=== PATIENT | male | born 1950 | race African-American/Black ===

== ENCOUNTER → 2017-03-13 | Outpatient (CLI) | payer OTHER, MEDICARE ==
[~2017-03-13] MED LIST: CHOL100013 PO; HYDR-2666 PO; OMEP20CA9 PO
--- NOTE | 2017-03-14 00:22 | PAIN ---
DATE OF SERVICE: 03/13/2017 INITIAL CONSULTATION CHIEF COMPLAINT: Neck and left upper extremity pain. HISTORY OF PRESENT ILLNESS: This is a 66-year-old male who presents with history of pain since about 10/2016, gradually increasing, not the result of any specific injury or accident he is aware of, but the pain into the left arm and shoulder got worse as he had a cold at that time with a cough and he still has a low-grade cough, but the coughing causes the pain to get significantly worse in the base of his neck and radiating to his left shoulder, radiating into the arm, forearm and upper arm on the left side into the hand with some numbness and tingling from the elbow to the hand as well as some numbness and tingling in the upper arm and aching and shooting pain in the upper arm and shoulder. The patient reports sharp, stabbing, shooting with numbness and radiation, intermittent in intensity, worse with coughing, worse with activity. His arm gets much more tender now with fatigability much higher than the right side. The patient reports no loss of motor function, but significant fatigability once again on the left side. The patient reports that it wakes him from sleep at least once or twice a night. It does not affect his bowel or bladder control or his ability to walk, but it is significantly painful. The patient did have physical therapy, which he said helped to increase the mobility in his neck and shoulder, but has not decreased the pain significantly. He is still doing some exercises on his own at home as well and taking some pain medication, he is unsure of the name of it currently, but this seems to help as well. The patient rates his disability rating from 0 to 10, 10 being the worst, as a 3 with family and home responsibilities, recreation, occupation, 5 with social activity, 4 with self-care and life support activities. The patient did have an MRI scan of the cervical spine, showing some degenerative changes at cervical disk levels, worse at C3-C4 with some narrowing at C5-C6, more on the left with mild compromised left neural foramen at C6-C7, showing some loss of disk space height as well. PAST MEDICAL HISTORY: Significant for hearing loss, cigarette smoking 1 pack a day for 40 years, osteoporosis. PAST SURGICAL HISTORY: Previous surgeries include appendectomy, hemorrhoidectomy, right knee arthroscopy and neck lipoma excision in 2016. CURRENT MEDICATIONS: Include hydrocodone on a p.r.n. basis. He is not taking any other medications. ALLERGIES: The patient has no known drug allergies. FAMILY HISTORY: Not significant for any major medical problems or conditions that he is aware of. SOCIAL HISTORY: The patient smokes one packet of cigarettes a day. Does not drink alcohol. He is , lives with his spouse and lives locally. He is currently retired. REVIEW OF SYSTEMS: The patient's review of systems is positive for those items mentioned in the history of present illness. All systems reviewed and otherwise negative. It is complete, full and well documented on the patient's chart. PHYSICAL EXAMINATION: VITAL SIGNS: The patient's blood pressure is 128/84, pulse is 91, respirations 16, temperature 98.6 degrees Fahrenheit, height is 5 feet 6 inches, weight is 165 pounds. GENERAL: The patient is awake, alert, oriented, appropriate, very pleasant demeanor. HEENT: Shows normocephalic and atraumatic. Extraocular movements are intact and symmetrical. Oral cavity shows mucous membranes are moist and pink. Dentition is intact. NECK: Shows anterior throat supple without palpable lymphadenopathy noted. Swallow reflex is symmetrical. CHEST: Shows normal on inspection. Breath sounds are clear to auscultation bilaterally. HEART: Shows S1 and S2 clear. No murmurs auscultated. ABDOMEN: Soft, nontender, nondistended. No palpable organomegaly noted. No rebound or guarding demonstrated. BACK: Shows spine grossly in the midline. Normal-appearing cervical lordotic curvature, thoracic kyphotic curvature, and lumbar lordotic curvature. Cervical paraspinous musculature is symmetrical on inspection with palpation, shows some very mild tenderness with deep palpation in the low left side of the cervical paraspinous muscles diffusely, not on the right. Also, some minor tenderness with palpation in the medial and lateral trapezius on the left, but not the right. Again, symmetrically shows full rotational motion of the cervical spine, both right and left lateral rotation greater than 45 degrees as well as full extension and full forward flexion without exacerbation of pain. EXTREMITIES: The patient's upper extremities show deep tendon reflexes at 2+ in the biceps and triceps tendons. 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 Bicep and tricep flexion shows biceps flexion at about 4/5 on the left, triceps 5/5 on the left and 5/5 each on the right side. Peripheral pulses are 2+ radial distribution. No peripheral edema is noted. No clubbing. No cyanosis. Upper extremities are warm and dry to touch, equal in color and appearance. Shoulder shrug is strong and intact with some minor loss of strength on the left side with resistance, but not with abduction of the shoulders at 90 degrees bilaterally, which is intact with some minor pain reported, but without loss of strength. IMPRESSION: 1. This is a 66-year-old male with history of left upper extremity pain for about 6 months now in a radicular fashion. 2. MRI scan of the cervical spine as noted. 3. Cigarette smoking. 4. History of osteoporosis. PLAN: Options were discussed with the patient including conservative medical management, physical therapies, and interventional techniques. He has had physical therapy with only some minimal improvement. He would like to pursue interventional techniques, but is somewhat apprehensive. We will try Medrol Dosepak first and see if this may decrease the pain significantly as the pain is slightly improved since it was back in October and we would like to see if this will continue. If not, we did discuss cervical epidural steroid injection, we will try the Medrol Dosepak initially. If not significantly improved in about 1 week, we will plan on cervical injection at that time. YULISA MAR MD DR: EMIR/dinesh JOB#: [id number] / [id number]
== END | disposition home or self-care (01) ==
LOC: PNCL 07:37
PROVIDERS: ATTEND Anesthesiology
DX: M54.2 Cervicalgia (principal); M79.602 Pain in left arm
CPT/HCPCS: G0463

== ENCOUNTER → 2017-05-23 | Outpatient (CLI) | payer OTHER, MEDICARE ==
[~2017-05-23] MED LIST changes: -HYDR-2666 PO; +HYDR-2758 PO
== END | disposition home or self-care (01) ==
LOC: PNCL 08:12
PROVIDERS: ATTEND Anesthesiology
DX: M50.30 Other cervical disc degeneration, unspecified cervical region (principal); R20.2 Paresthesia of skin; Z87.310 Personal history of (healed) osteoporosis fracture
CPT/HCPCS: 99212